=== PATIENT | female | born 1980 | race Caucasian/White ===

== ENCOUNTER 2020-07-28 15:00 | Outpatient (RCR) | payer OTHER, SELFPAY ==
--- NOTE | 2020-05-18 11:00 | MHC.PT.OD ---
[facility] [place] Office [place] Office [place] Office [address] Nataly Ann [address] [phone] F: [phone] F: [phone] F: [phone] F: [phone] Physical Therapy Daily Note Diagnosis: Date of Surgery: 05/01/20 Date of Evaluation: 05/04/20 Treatments to Date: 7 Cancellations to Date: No Shows to Date: Authorized Visits: 12 Insurance End Date: Precautions/ Contraindications:WBAT WITH USE OF ARTICULATED BRACE Subjective: PATIENT REPORTS INCREASED FATIGUE TODAY. PATIENT STATED THAT SLEEPING CYCLE HAS BEEN LIMITED. Pain Score: 4 Pain Location: LEFT MEDIAL KNEE Objective Flowsheet: Tests & Measures LEFT KNEE FLEXION 120 EXTENSION -3 Exercises AAROM OF STATIONARY BIKE X8 MINUTES SAQ GRADUATED WITH T BAND DF 3X10 SLR WITH RESISTED CONTROL THROUGH LOWERING OF LE FOR EXTENSION 6X5 BLACK T BAND SUPINE HIP ABDUCTION BLACK TBAND 2X15 LAQ WITH ISOMETRIC 10 SEC HOLD 3X10 DRESSING CHANGE PATELLA MOBS ALL DIRECTION GRADE 2 OSC STM MEDIAL ADDUCTOR INSERTION AT BEND AT KNEE STM RETINACULUM WITH USE OF BRACE AND BILATERAL CRUCTHES STEP T0 2X15 STEP THROUGH 2X30 STEP TO COMPLIANT SURFACE DISK 25% WB 3X15 MULTI DIRECTIONAL WEIGHT SHIFT LEFT KNEE DRIVES WITH USE OF CRUTCHES Modalities INTERFERNTIAL LEFT KNEE ( 10 MA, 60 PPS) Assessment: PATIENT PLAN OF CARE FOCUSED GAIT MECHANICS AND WEIGHT SHIFT TO INCREASE PROPIOCPETION AND KINESTHETIC AWAREMNESS. PATIENT REQUIRED TACTILE CUES FOR IMPROVEMENT OF UPRIGHT AND MIDLINE POSTURE. PT Plan: PROGRESS WITH GAIT TRANING Discharge Today? No Short Term Goals: 1. PROGRESSION ON WBAT STANDING EXERCISES 2. PATIENT WILL PRESENT WITH 25% STEPPING STRATEGIES 3. INTRODUCTION OF RESISTED BAND EXERCISES FOR LE STRENGTH MET GOALS: 1. INDPENDENT WITH HEP 2. WEENED OF FULL BRACE TO [facility] Goals: 1. DECREASE PAIN TO 3/10 AT WORST 2. RETURN TO NORMAL GAIT 3. NORMAL PATELL TRACKING 4.INCREASE MMT TO LEFT LE 4+/5 TO ASSIST WITH TRANSFERS AND GAIT 5. INCREASE LEFT KNEE FLEXION 125, EXTENSION 0
--- NOTE | 2020-05-18 11:12 | MHC.PT.OD ---
[facility] [place] Office [place] Office [place] Office [address] Nataly Ann [address] [phone] F: [phone] F: [phone] F: [phone] F: [phone] Physical Therapy Daily Note Diagnosis: Date of Surgery: 05/01/20 Date of Evaluation: 05/04/20 Treatments to Date: 7 Cancellations to Date: No Shows to Date: Authorized Visits: 12 Insurance End Date: Precautions/ Contraindications:WBAT WITH USE OF ARTICULATED BRACE Subjective: PATIENT REPORTS INCREASED FATIGUE TODAY. PATIENT STATED THAT SLEEPING CYCLE HAS BEEN LIMITED. Pain Score: 4 Pain Location: LEFT MEDIAL KNEE Objective Flowsheet: Tests & Measures LEFT KNEE FLEXION 120 EXTENSION -3 Exercises AAROM OF STATIONARY BIKE X8 MINUTES SAQ GRADUATED WITH T BAND DF 3X10 SLR WITH RESISTED CONTROL THROUGH LOWERING OF LE FOR EXTENSION 6X5 BLACK T BAND SUPINE HIP ABDUCTION BLACK TBAND 2X15 LAQ WITH ISOMETRIC 10 SEC HOLD 3X10 DRESSING CHANGE PATELLA MOBS ALL DIRECTION GRADE 2 OSC STM MEDIAL ADDUCTOR INSERTION AT BEND AT KNEE STM RETINACULUM WITH USE OF BRACE AND BILATERAL CRUCTHES STEP T0 2X15 STEP THROUGH 2X30 STEP TO COMPLIANT SURFACE DISK 25% WB 3X15 MULTI DIRECTIONAL WEIGHT SHIFT LEFT KNEE DRIVES WITH USE OF CRUTCHES Modalities INTERFERNTIAL LEFT KNEE ( 10 MA, 60 PPS) Assessment: PATIENT PLAN OF CARE FOCUSED GAIT MECHANICS AND WEIGHT SHIFT TO INCREASE PROPIOCPETION AND KINESTHETIC AWAREMNESS. PATIENT REQUIRED TACTILE CUES FOR IMPROVEMENT OF UPRIGHT AND MIDLINE POSTURE. PT Plan: PROGRESS WITH GAIT TRANING Discharge Today? No Short Term Goals: 1. PROGRESSION ON WBAT STANDING EXERCISES 2. PATIENT WILL PRESENT WITH 25% STEPPING STRATEGIES 3. INTRODUCTION OF RESISTED BAND EXERCISES FOR LE STRENGTH MET GOALS: 1. INDPENDENT WITH HEP 2. WEENED OF FULL BRACE TO [facility] Shelter Goals: 1. DECREASE PAIN TO 3/10 AT WORST 2. RETURN TO NORMAL GAIT 3. NORMAL PATELL TRACKING 4.INCREASE MMT TO LEFT LE 4+/5 TO ASSIST WITH TRANSFERS AND GAIT 5. INCREASE LEFT KNEE FLEXION 125, EXTENSION 0
== END 2020-08-25 09:17 | disposition other institution (70) ==
LOC: HO.PT 15:00
PROVIDERS: PCP Internal Medicine; Visit Provider Orthopaedic Surgery
DX: Z47.89 Encounter for other orthopedic aftercare (principal)
CPT/HCPCS: 97014; 97110; 97112; 97116; 97140; 97530